=== PATIENT | male | born 1960 | race Caucasian/White ===

== ENCOUNTER 2019-09-16 08:04 | Day surgery (SDC) | payer BC ==
[~2019-09-16] VITALS: Ht 180.3 cm; Wt 240.0 kg
[~2019-09-16 08:04] MED LIST: ASPI81CH PO; ATOR20 PO; Amoxicillin500 MG PO; IBUP800 PO
--- NOTE | 2019-09-16 14:33 | NUR ---
1430 Patient up and to the RR, TR band removed. right radial site cleaned and dressed with a cloth dot and arm board replaced. Instructed over radila site care and follow up appointment. Patient verbalilzed understanding. Belongings with patient. Dressed adn here to escort home. Patient taking to the exit via wheelchair.
== END 2019-09-16 14:30 | disposition home or self-care (01) ==
LOC: MHTC 08:04
PROC: 4A023N7 Measurement of Cardiac Sampling and Pressure, Left Heart, Percutaneous Approach (ICD-10-PCS; principal; 2019-09-16)
PROC: B201YZZ Plain Radiography of Multiple Coronary Arteries using Other Contrast (ICD-10-PCS; principal; 2019-09-16)
DX: Q23.1 Congenital insufficiency of aortic valve (principal); I25.10 Atherosclerotic heart disease of native coronary artery without angina pectoris; Q24.5 Malformation of coronary vessels; G47.33 Obstructive sleep apnea (adult) (pediatric); F17.210 Nicotine dependence, cigarettes, uncomplicated; Z79.899 Other long term (current) drug therapy; Z79.82 Long term (current) use of aspirin; Z91.030 Bee allergy status
CPT/HCPCS: 93454; 99152; 99153; C1769; C1894; J1644; J2250; J3010; J7030; Q9967

== ENCOUNTER 2019-12-13 06:23 | Day surgery (SDC) | payer BC ==
[~2019-12-13] VITALS: Ht 185.4 cm; Wt 108.0 kg
[2019-12-13] MEDS ORDERED: METO50ER PO (07:03)
[2019-12-13] MEDS ORDERED: ASPI325 PO (07:03)
[2019-12-13] MEDS ORDERED: XARELTO20 MG PO (07:04)
--- NOTE | 2019-12-13 07:50 | NUR ---
On STANDBY FOR CARIOVERSION. pT. PLACED ON 2L NC WITH O2 SATS 96-98%. SILVANO PROCEDURE WELL.
--- NOTE | 2019-12-13 08:48 | NUR ---
DISCHARGE PT REMAINED A&OX3 AND DENIED ANY PAIN DURING RECOVERY. IV DC'D WITH CANULA IN TACT. PT ABLE TO DRESS SELF AND ABULATE WITH STEADY GAIT. DISHARGE PAPERWORK GONE OVER WITH PT. PT VERBALLY STATED THE UNDERSTANDING OF THE DISCHARGE EDUCATIONS AND DENIED ANY QUESTIONS AT THIS TIME. PT WHEELED OUT BY THIS NURSE.
== END 2019-12-13 22:51 | disposition home or self-care (01) ==
LOC: MHTC 06:23
DX: I48.92 Unspecified atrial flutter (principal); E78.5 Hyperlipidemia, unspecified; G47.33 Obstructive sleep apnea (adult) (pediatric); F17.210 Nicotine dependence, cigarettes, uncomplicated; Z99.89 Dependence on other enabling machines and devices; Z95.2 Presence of prosthetic heart valve; Z79.01 Long term (current) use of anticoagulants; Z79.82 Long term (current) use of aspirin; Z79.899 Other long term (current) drug therapy
CPT/HCPCS: 92960; 93005; 93010; 99152; J2250; J2704; J3010; J7030